=== PATIENT | male | born 1955 | race Two or more races ===

== ENCOUNTER 2022-10-30 18:12 | Inpatient (IN) | payer OTHER ==
[~2022-10-30] VITALS: Ht 172.7 cm; Wt 102.1 kg
[2022-10-30] MEDS ORDERED: EZETIMIBE10 MG (18:21)
[2022-10-30] MEDS ORDERED: GABAPENTIN300 MG (18:21)
[2022-10-30] MEDS ORDERED: METOPROLOL SUCC50 MG PO (18:21)
[2022-10-30] MEDS ORDERED: CARAFATE1 GM PO (18:21)
== END 2022-11-02 11:22 | disposition home or self-care (01) | DRG 195 ==
LOC: ER 18:12 → MEDI 22:03
PROVIDERS: ADMIT Internal Medicine; ATTEND Internal Medicine
PROC: BB24ZZZ Computerized Tomography (CT Scan) of Bilateral Lungs (ICD-10-PCS; 2022-10-30)
PROC: BW28ZZZ Computerized Tomography (CT Scan) of Head (ICD-10-PCS; principal; 2022-10-31)
PROC: 3E0F7GC Introduction of Other Therapeutic Substance into Respiratory Tract, Via Natural or Artificial Opening (ICD-10-PCS; 2022-10-31)
DX: J18.9 Pneumonia, unspecified organism (principal); I10 Essential (primary) hypertension; E11.9 Type 2 diabetes mellitus without complications; E78.49 Other hyperlipidemia; Z79.4 Long term (current) use of insulin; G47.33 Obstructive sleep apnea (adult) (pediatric)